=== PATIENT | female | born 2000 | race African-American/Black ===

== ENCOUNTER 2023-04-30 17:18 | Emergency (ER) | payer OTHER, SELFPAY ==
--- NOTE | ~2023-04-30 | CT_ITS ---
EXAMINATION: CT abdomen pelvis w con DATE: 04/30/2023 20:18 INDICATION: Abdominal pain TECHNIQUE: Computed tomography (CT) of the abdomen and pelvis was performed with 100 mL Omnipaque-350 intravenous contrast. Automated exposure control and iterative reconstruction technique were employe d. The dose-length product was 634.67 mGy-cm. COMPARISON: None. FINDINGS: Lower thorax: Unremarkable Liver: Normal. Biliary/Gallbladder: Gallbladder is normal. No bile duct dilation. Pancreas: No mass or duct dilation. Spleen: Normal. Adrenals:No mass. Kidneys: No mass, stone, or hydronephrosis. GI tract: Mild distal esophageal and gastric wall edema No small or large bowel dilation. Normal appe ndix. Mesentery/Peritoneum: No ascites, mass, or free air. Retroperitoneum: No mass. Pelvis: Retroverted, otherwise normal-appearing uterus. Moderate bladder wall thickening in a partial ly distended urinary bladder. Small volume pelvic fluid, within physiologic. Range normal-appearing o varies. Soft Tissues: Soft tissues and body wall unremarkable. Bones: No acute osseous finding. IMPRESSION: Mild esophagitis/gastritis. Cystitis versus bladder wall thickening from incomplete distention. Reviewed, dictated and finalized at location K.
[2023-04-30 17:45] VITALS: BP 105/62; PULSE 84; RESP 16; TEMP 36.4; O2SAT 100
[2023-04-30 18:17] LABS: Basophils Absolute Auto 0.1 K/mm3 (0.0-0.1); Eosinophils Absolute Auto 0.1 K/mm3 (0-0.3); Eosinophils Percent Auto 1.6 % (0-4.4); Hematocrit 44.2 % (37.0-47.0); Immature Granulocyte Absolute 0.02 K/mm3 (0.00-0.031); Immature Granulocyte Percent A 0.3 % (0-0.5); Lymphocytes Percent Auto 14.4 % (18.3-44.2); Mean Corpuscular HGB Conc 31.7 g/dl (32-36); Mean Corpuscular Hemoglobin 28.1 pg (26-34); Mean Corpuscular Volume 88.8 fl (80-100); Mean Platelet Volume 9.6 fl (7.4-10.4); Monocytes Absolute Auto 0.3 K/mm3 (0.1-0.6); Monocytes Percent Auto 4.3 % (2.6-8.5); Neutrophils Absolute Auto 5.4 K/mm3 (1.3-6.7); Neutrophils Percent Auto 78.4 % (45.5-73.1); Platelet Count Result 210 k/mm3 (150-375); Red Blood Count 4.98 M/mm3 (4.2-5.4); Red Cell Distribution Width 13.7 % (11.5-14.5); White Blood Count 6.9 K/mm3 (4.5-10.0)
[2023-04-30 18:27] LABS: Alanine Aminotransferase 38 U/L (6-35); Albumin Level 4.7 g/dL (3.5-5.1); Alkaline Phosphatase 40 U/L (38-126); Anion Gap 8 mmol/L (8-16); Appearance Urine Clear (Clear); Aspartate Amino Transferase 42 U/L (14-36); Bacteria Urine None Seen /hpf; Bilirubin Urine Negative (Negative); Bilirubin,Total 0.5 mg/dL (0.2-1.3); Blood Urea Nitrogen 14 mg/dL (7-17); Blood Urine 2+ (Negative); Calcium 9.2 mg/dL (8.4-10.2); Carbon Dioxide 29 mmol/L (22-30); Chloride 100 mmol/L (98-107); Color Urine Yellow (Yellow); Estimated CRCL calculation 89 ml/min; Estimated Glomerular Filt Rate > 60; Glucose 90 mg/dL (65-110); Glucose Urine UA Negative (Negative); Ketones Urine Negative (Negative); Leukocyte Esterase Ur Negative LEU/UL (Negative); Lipase 75 U/L (23-300); Nitrate Urine Negative (Negative); Protein Urine Trace mg/dL (Negative); RBC Urine 0-2 /hpf (0-2); Sodium 137 mmol/L (137-145); Specific Grav Ur 1.026 (1.001-1.035); Squamous Epithelial Cell Urine None seen /hpf (Few); WBC Urine 0-5 /hpf
[2023-04-30 18:36] LABS: Add Urine Microscopic? YES
[2023-04-30 19:15] LABS: Pregnancy On Board Control Positive; Urine Pregnancy Test Negative
[2023-04-30] MEDS: MORPHINE SULFATE (*CRX) 4 MG/ML INJ IV PUSH (19:55)
[2023-04-30] MEDS: SODIUM CHLORIDE 0.9% IV 1,000 ML 999 ML IV CONT (19:55)
[2023-04-30] MEDS: ONDANSETRON INJ 4 MG/2 ML VIAL IV PUSH (19:56)
--- NOTE | 2023-04-30 19:56 | ED.GENADULT ---
HPI - General Adult General Chief complaint: Abdominal Pain Stated complaint: abdominal pain Time Seen by Provider: 04/30/23 19:29 History of Present Illness HPI narrative: Patient is a 22-year-old female who presents to Emergency Department with a chief complaint of abdominal pain. The patient reports over the last several days she has had a uncomfortable feeling throughout her abdomen and reports she has felt nauseated had a couple episodes of vomiting denies diarrhea denies prior abdominal surgeries reports she is just finishing her period Related Data Allergies Allergy/AdvReac Type Severity Reaction Status Date / Time No Known Allergies Allergy Verified 04/30/23 17:48 Review of Systems Review of Systems: A 10 system review of systems was completed on the patient and is negative except for what is stated in the HPI. Nursing and ancillary documentation was reviewed. Exam Narrative: GENERAL: Well-appearing, well-nourished, and in no acute distress. HEAD: Normocephalic, atraumatic. EYES: PERRLA and EOMI. ENT: Nares clear, no rhinorrhea or epistaxis. Mucous membranes moist. NECK: Supple. CHEST: Clear to auscultation. No respiratory distress. HEART: Regular rate and rhythm. No murmur heard. Normal peripheral pulses. ABDOMEN: Soft, diffusely tender to palpation, nondistended, normal active bowel sounds. EXTREMITIES: Normal range of motion. No edema. SKIN: Warm, dry, no rash. NEURO: No focal deficits. Alert and oriented x3. PSYCH: Normal mood and affect. Course Vital Signs Vital signs: Vital Signs Temperature 36.4 C L 04/30/23 17:45 Pulse Rate 84 04/30/23 17:45 Respiratory Rate 16 04/30/23 17:45 Blood Pressure 105/62 04/30/23 17:45 Pulse Oximetry 100 04/30/23 17:45 Oxygen Delivery Room Air 04/30/23 17:45 Temperature 36.4 C L 04/30/23 17:45 Pulse Rate 61 04/30/23 19:59 Respiratory Rate 14 04/30/23 19:59 Blood Pressure 115/68 04/30/23 19:59 Pulse Oximetry 100 04/30/23 19:59 Oxygen Delivery Room Air 04/30/23 17:45 Medical Decision Making MDM Narrative Medical decision making narrative: Differential diagnosis includes abdominal colitis, diverticulitis, appendicitis, cholecystitis, gastritis Laboratory studies were obtained on the patient which showed a normal CBC electrolytes are within normal limits liver enzymes were slightly elevated with an AST of 42 and an ALT of 38 bilirubin of 0.5 lipase was normal at 75 urinalysis showed no evidence of UTI CT scan showed evidence of gastritis Patient will be started on Protonix and given a prescription for Zofran patient will be referred to primary care for follow-up. Vital Signs Vital Signs: Vital Signs Temperature 36.4 C L 04/30/23 17:45 Pulse Rate 84 04/30/23 17:45 Respiratory Rate 16 04/30/23 17:45 Blood Pressure 105/62 04/30/23 17:45 Pulse Oximetry 100 04/30/23 17:45 Oxygen Delivery Room Air 04/30/23 17:45 Temperature 36.4 C L 04/30/23 17:45 Pulse Rate 61 04/30/23 19:59 Respiratory Rate 14 04/30/23 19:59 Blood Pressure 115/68 04/30/23 19:59 Pulse Oximetry 100 04/30/23 19:59 Oxygen Delivery Room Air 04/30/23 17:45 Lab Data 04/30/23 18:08 04/30/23 18:08 Labs: Lab Results 04/30/23 Range/Units 18:08 WBC 6.9 (4.5-10.0) K/mm3 RBC 4.98 (4.2-5.4) M/mm3 Hgb 14.0 (12.0-15.0) g/dL Hct 44.2 (37.0-47.0) % MCV 88.8 (80-100) fl MCH 28.1 (26-34) pg MCHC 31.7 L (32-36) g/dl RDW 13.7 (11.5-14.5) % Plt Count 210 (150-375) k/mm3 MPV 9.6 (7.4-10.4) fl Immature Gran % (Auto) 0.3 (0-0.5) % Neut % (Auto) 78.4 H (45.5-73.1) % Lymph % (Auto) 14.4 L (18.3-44.2) % Jennings % (Auto) 4.3 (2.6-8.5) % Eos % (Auto) 1.6 (0-4.4) % Baso % (Auto) 1.0 (0.2-1.2) % Lymph # (Auto) 1.00 (0.9-3.2) K/mm3 Jennings # (Auto) 0.3 (0.1-0.6) K/mm3 Eos # (Auto) 0.1 (0-0.3) K/mm3 Baso # (Auto) 0.1 (0.0-0.1)
[2023-04-30 19:59] VITALS: BP 115/68; PULSE 61; RESP 14; O2SAT 100
[2023-04-30 22:16] VITALS: BP 115/65; PULSE 55; RESP 14; O2SAT 99
== END 2023-04-30 22:30 | disposition home or self-care (01) ==
PROVIDERS: Emergency Medicine; Emergency Provider Emergency Medicine
DX: K29.70 Gastritis, unspecified, without bleeding (principal)
CPT/HCPCS: 36415; 74177; 80053; 81001; 81025; 83690; 85025; 96361; 96374; 96375; 99284; J2270; J2405; J7030; Q9967